=== PATIENT | male | born 1985 | race Caucasian/White ===

== ENCOUNTER 2019-08-03 14:50 | Emergency (ER) | payer BC ==
[~2019-08-03] VITALS: Ht 177.8 cm; Wt 68.0 kg
[2019-08-03] MEDS ORDERED: PAXIL20 MG ORAL (14:59)
[2019-08-03] MEDS ORDERED: Tetanus/Diptheria/Pertussis IM ONE (15:15)
[2019-08-03 15:30] VITALS: BP 124/84
[2019-08-03] MEDS ORDERED: Lidocaine 1% Plain 30 ml INJ ONE (15:30)
--- NOTE | 2019-08-03 15:30 | Diagnostic Imaging Report ---
EXAM: XR Right Hand Complete, 3 or More Views CLINICAL HISTORY: FB TECHNIQUE: Frontal, lateral and oblique views of the right hand. COMPARISON: None FINDINGS: Bones/joints: No displaced fracture or dislocation identified. Joint space is maintained. No bony lesion. Soft tissues: Normal. IMPRESSION: No displaced fracture or dislocation identified.
--- NOTE | 2019-08-03 15:32 | NUR ---
ED Nurse Note:pt. came with laceration on right hand nuckle area from broken glass, wound was cleaned
--- NOTE | 2019-08-03 15:57 | Emergency Room Report ---
History of Present Illness General Chief Complaint: Laceration Source: Patient (Kerry Lin) Present Illness HPI 33-year-old male with no significant past medical history here due to a laceration right first knuckle that occurred 30 minutes prior to arrival. Patient reports that he can contact with broken glass. Patient has full range of motion of hand and fingers. Neurovascularly intact. No motor or sensory deficits noted. Has not taken medication for symptom relief. Is not up-to- date with tetanus shot. Denies fever and chills, chest pain, cough and congestion, shortness of breath. (Kerry Lin) Allergies: Coded Allergies: No Known Allergies (Unverified , 08/03/19) COVID-19 Screening Contact w/high risk pt: No Recent Travel to affected area: No Experienced COVID-19 symptoms?: No COVID-19 Testing performed [employer]: No (Kerry Lin) Patient History Past Medical History: see triage record Past Surgical History: none Pertinent Family History: none Immunizations: other - tdap given today Reviewed Nursing Documentation: PMH: Agreed; PSxH: Agreed (Kerry Lin) Review of Systems All Other Systems: negative except mentioned in HPI (Kerry Lin) Physical Exam Vital Signs Date Time Temp Pulse Resp B/P (MAP) Pulse Ox O2 Delivery O2 Flow Rate FiO2 08/03/19 14:54 98.6 72 17 124/84 (97) 99 Room Air Sp02 EP Interpretation: reviewed, normal General Appearance: no apparent distress, alert, GCS 15, non-toxic Head: normocephalic, atraumatic Eyes: bilateral eye normal inspection, bilateral eye PERRL ENT: hearing grossly normal, normal pharynx, no angioedema, normal voice Neck: full range of motion, supple/symm/no masses Respiratory: chest non-tender, lungs clear, normal breath sounds, no rhonchi, speaking full sentences Cardiovascular #1: regular rate, rhythm, no edema, no murmur Gastrointestinal: non tender Musculoskeletal: back normal, non-tender Neurologic: alert, motor strength/tone normal, oriented x3, sensory intact, responsive, speech normal Psychiatric: judgement/insight normal, memory normal, mood/affect normal, no suicidal/homicidal ideation Skin: laceration - Superficial 3 cm laceration right second metacarpal Lymphatic: no adenopathy (Kerry Lin) Procedures Laceration/Wound Repair Laceration/Wound Repair : Consent: Verbal Wound Location: upper extremity - right second metacarpal Wound's Depth, Shape: irregular Wound Length (cm): 3 Wound Explored: contaminated Anesthesia: 1% Lidocaine Volume Anesthetic (ccs): 7 Wound Repaired With: sutures Suture Size/Type: 4:0, proline Number of Sutures: 15 Layer Closure?: Yes Sterile Dressing Applied?: Yes Splint Applied?: No Sling Applied?: No Patient Tolerated: Well Complications: None (Kerry Lin) Medical Decision Making PA Attestation All diagnoses and treatment plans were reviewed and discussed with my supervising physician Dr. Rust (Kerry Lin) Diagnostic Impression: Primary Impression: Hand laceration ER Course 33-year-old male with no significant past medical history here due to a laceration right first knuckle that occurred 30 minutes prior to arrival. Patient reports that he can contact with broken glass. Patient has full range of motion of hand and fingers. Neurovascularly intact. No motor or sensory deficits noted. Has not taken medication for symptom relief. Is not up-to- date with tetanus shot. Denies fever and chills, chest pain, cough and congestion, shortness of breath. Ddx considered but are not limited to : Superficial laceration, deep laceration , tendon involvement with laceration, laceration with foreign body Vital signs: are WNL, pt. is afebrile H&PE are most consistent with: Head laceration ORDERS: Augmentin, Motrin, mupirocin ointment, hand x-ray ED INTERVENTIONS: Wound closure, dressing clean, Tdap DISCHARGE: At this time pt. is stable for d/c to home. Will provide printed patient care instructions, and any necessary prescriptions. Care plan and follow up instructions have been discussed with the patient prior to discharge. Sutures to be removed in 7 to 10 days, take medication as directed, follow-up primary doctor, worsening symptoms return to the emergency room (Kerry Lin) Other X-Ray Diagnostic Results Other X-Ray Diagnostic Results : X-Ray ordered: Right hand # of Views/Limited Vs Complete: 2 View Indication: Pain EP Interpretation: Yes SANGEETA Xray: Interpretation reviewed, by supervising MD, and agrees with findings. Interpretation: no dislocation, no soft tissue swelling, no fractures, other - No foreign body Impression: No acute disease Electronically Signed by: Kerry Jha PA-C (Kerry Lin) Other X-Ray Diagnostic Results : Electronically Signed by: Aubrey Peralta documentation of Xray reviewed by me and is accurate, Milad Rust MD (Milad Rust MD) Last Vital Signs Date Time Temp Pulse Resp B/P (MAP) Pulse Ox O2 Delivery O2 Flow Rate FiO2 08/03/19 15:30 98.6 17 124/84 99 Room Air 08/03/19 14:54 72 (Kerry Lin) Disposition: HOME, SELF-CARE Condition: Stable Scripts Mupirocin* (MUPIROCIN*) 22 Gm Oint...g. 1 APPLIC TOPIC THREE TIMES A DAY, #22 GM Prov: Kerry Lin 08/03/19 Ibuprofen* (MOTRIN*) 600 Mg Tablet 600 MG ORAL FOUR TIMES A DAY, #30 TAB 0 Refills Prov: Kerry Lin 08/03/19 Amoxicillin/Potassium Clav 875-125* (AUGMENTIN 875-125 TABLET*) 1 Each Tablet 1 TAB ORAL TWICE A DAY for 7 Days, #14 TAB Prov: Kerry Lin 08/03/19 Referrals: NOT CHOSEN IPA/,REFERRING (PCP) Patient Instructions: Laceration Care, Adult Additional Instructions: Take medication as directed, follow-up primary doctor, sutures to be removed in 7 to 10 days, if worsening symptoms return to the emergency room Kerry Lin August 03, 2019 15:57 Milad Rust MD August 03, 2019 16:06
[2019-08-03] MEDS ORDERED: IBUPROFEN600 M1 ORAL (15:58)
[2019-08-03] MEDS ORDERED: MUPIROCIN22 GM TOPIC (15:58)
[2019-08-03] MEDS ORDERED: AUGMENTIN 875-1 EAC1 ORAL (15:58)
[2019-08-03 16:01] VITALS: BP 124/84
--- NOTE | 2019-08-03 16:02 | NUR ---
ER DISCHARGE NOTE:wound was cleaned and dry ddressing applied Patient is cleared to be discharged per ERMD, pt is aox4, on room air, with stable vital signs. pt was given dc and prescription instructions, pt was able to verbalize understanding, pt is able to ambulate with steady gait. pt took all belongings.
== END 2019-08-03 16:05 | disposition home or self-care (01) ==
LOC: EMR 15:12
DX: S61.210A Laceration without foreign body of right index finger without damage to nail, initial encounter (principal); Z23 Encounter for immunization; W25.XXXA Contact with sharp glass, initial encounter; Y92.9 Unspecified place or not applicable
CPT/HCPCS: 12002; 73120; 90471; 90715; 99283; J2001